=== PATIENT | female | born 1970 | race Caucasian/White ===

== ENCOUNTER 2020-04-14 10:35 | Emergency (ER) | payer BC ==
[~2020-04-14] VITALS: Ht 160 cm; Wt 51.4 kg
[2020-04-14 11:32] VITALS: BP 136/74; PULSE 82; TEMP 98.5
== END 2020-04-14 11:27 | disposition home or self-care (01) ==
LOC: COL.ER 10:35
DX: I83.812 Varicose veins of left lower extremity with pain (principal); G43.909 Migraine, unspecified, not intractable, without status migrainosus; Z88.6 Allergy status to analgesic agent

== ENCOUNTER 2021-10-08 09:55 | Emergency (ER) | payer SELFPAY ==
[~2021-10-08] VITALS: Ht 160 cm; Wt 60.0 kg
[2021-10-08 10:07] VITALS: TEMP 97.7
[2021-10-08 10:47] LABS: BASO % 0.4 % (0.0-2.0); EOS # 0.1 K/mm3 (0.0-0.7); EOS % 1.2 % (0.0-4.0); GRAN # 6.4 K/mm3 (1.4-6.5); HEMATOCRIT 41.1 % (37.0-47.0); HEMOGLOBIN 13.8 g/dl (12.5-16.0); LYMPH # 1.9 K/mm3 (1.2-3.4); LYMPH % 20.8 % (20.0-51.0); MEAN CELL VOLUME 92 fl (80.0-100.0); MEAN CORPUSCULAR HEMOGLOBIN 31 pg (27-31); MEAN CORPUSCULAR HGB CONC 34 g/dl (33.0-37.0); MEAN PLATELET VOLUME 8.8 fl (7.4-10.4); MONO # 0.7 K/mm3 (0.1-0.6); MONO % 7.4 % (1.7-9.3); PLATELET COUNT 337 K/mm3 (130-400); RED BLOOD COUNT 4.45 M/mm3 (4.10-5.30)
[2021-10-08 11:07] LABS: ALBUMIN 3.9 gm/dL (3.5-5.0); BILIRUBIN,TOTAL 0.4 mg/dL (0.2-1.2); CALCIUM 9.6 mg/dL (8.4-10.2); CREATININE, serum 0.77 mg/dL (0.57-1.11); POTASSIUM 4.6 mmol/L (3.5-4.5); TOTAL PROTEIN 7.2 gm/dL (6.2-8.1)
[2021-10-08 11:13] LABS: TROPONIN-I 0.011 ng/mL (0.00-0.033)
[2021-10-08 12:10] VITALS: BP 106/82; PULSE 85
[2021-10-08] MEDS ORDERED: TOPROL XL 25MG25 MG PO (12:27)
== END 2021-10-08 12:15 | disposition home or self-care (01) ==
LOC: COL.ER 09:55
PROVIDERS: Nurse Practitioner Primary Care
DX: I47.1 Supraventricular tachycardia (principal); F17.210 Nicotine dependence, cigarettes, uncomplicated; Z28.310 Unvaccinated for COVID-19